=== PATIENT | male | born 1945 | race Two or more races ===

== ENCOUNTER 2024-09-02 13:04 | Inpatient (IN) | payer MEDICARE, MEDICAID, SELFPAY ==
[2024-09-02] VITALS (7 sets, daily range): BP systolic 99–114; BP diastolic 56–61; PULSE 68–97; RESP 14–18; TEMP 36.4–36.8; O2SAT 89–96; BMI 28.5
--- NOTE | 2024-09-02 13:19 | PD.EDADULT ---
ED General RME/HPI General Chief complaint: General Adult/Misc Complain Stated complaint: ABNORMAL LABS Time Seen by Provider: 09/02/24 13:18 Arrival date/time: 09/02/24 13:04 CC: Elevated white blood cell count recent urinary tract infection recently took ciprofloxacin HPI patient presents the ER via EMS from assisted care facility where he was sent for elevated white blood cell count patient has an indwelling Blum catheter and has had a history of recurrent infections. Patient is awake alert but not she is using foul language EMS report blood pressures of 100/60 with no tachycardia. Per report from assisted care facility the patient is not febrile. Related Data Home Medications ?Medication ?Instructions ?Recorded ?Confirmed ascorbic acid (vitamin C) 500 mg 500 mg PO BID 05/02/24 09/03/24 tablet baclofen 10 mg tablet 10 mg PO BID neuropathy 05/02/24 09/03/24 benazepril 40 mg tablet 40 mg PO QDAY 05/02/24 09/03/24 diclofenac sodium 75 mg 75 mg PO BID Arthiritis type pain 05/02/24 09/03/24 tablet,delayed release docusate sodium 100 mg capsule 100 mg PO QDAY constipation 05/02/24 09/03/24 (Stool Softener) dulaglutide 0.75 mg/0.5 mL 0.75 mg subcut QWEEK diabetes 05/02/24 09/03/24 subcutaneous pen injector (Trulicity) furosemide 20 mg tablet 20 mg PO QAM congestion 05/02/24 09/03/24 gabapentin 800 mg tablet 800 mg PO TID neuropathy 05/02/24 09/03/24 melatonin 5 mg tablet 5 mg PO HS inability to sleep 05/02/24 09/03/24 pantoprazole 40 mg tablet,delayed 40 mg PO QDAY indigestion 05/02/24 09/03/24 release tamsulosin 0.4 mg capsule (Flomax) 0.4 mg PO QDAY BPH 05/02/24 09/03/24 tramadol 50 mg tablet 50 mg PO Q12HR PRN moderate to 05/02/24 09/03/24 severe pain 4-10 acetaminophen 325 mg tablet 650 mg PO [id number] PRN mild pain 06/08/24 09/03/24 (Tylenol) insulin aspart U-100 100 unit/mL See Rx Instructions .Route .COMPLEX 06/08/24 09/03/24 subcutaneous solution multivitamin with minerals 1 cap PO QDAY 06/08/24 09/03/24 hydroxyzine HCl 25 mg tablet 25 mg Q12HR PRN Anxiety 07/28/24 09/03/24 ondansetron HCl 4 mg tablet 4 mg PO Q6H PRN Nausea 07/28/24 09/03/24 amino acids-protein hydrolysate 15 1 ea PO BID wound healing 09/03/24 09/03/24 gram-100 kcal/30 mL oral liquid (Pro-Stat Sugar Free) bisacodyl 10 mg rectal suppository 10 mg [place] QDAY PRN Constipation 09/03/24 09/03/24 (Dulcolax (bisacodyl)) citalopram 20 mg tablet 20 mg PO 1XD verbal aggression 09/03/24 09/03/24 towards others cranberry extract 425 mg capsule 425 mg PO BID 09/03/24 09/03/24 finasteride 5 mg tablet 5 mg PO QDAY DHT 09/03/24 09/03/24 glucagon 1 mg/0.2 mL subcutaneous 1 mg PRN PRN blood sugar <70 09/03/24 09/03/24 auto-injector magnesium hydroxide 400 mg/5 mL 30 ml PO Q72H PRN Constipation 09/03/24 09/03/24 oral suspension (Milk of Magnesia) metronidazole 500 mg tablet 500 mg PO 1XD 09/03/24 09/03/24 sodium phosphates 19 gram-7 118 ml [place] Q72H PRN Constipation 09/03/24 09/03/24 gram/118 mL enema (Fleet Enema) Previous Rx's ?Medication ?Instructions ?Recorded insulin glargine 100 unit/mL (3 15 unit (0.15 mL) subcut QPM #15 mL 08/01/24 mL) subcutaneous pen (Lantus Solostar U-100 Insulin) Allergies Allergy/AdvReac Type Severity Reaction Status Date / Time No Known Allergies Allergy Verified 07/25/24 10:51 Review of Systems Review of Systems Narrative Review of Systems: GEN: No fever, no chills, no weight loss EYES: No discharge, no visual changes, no pain HEENT: No ear pain, no congestion, no sore throat PULM: No shortness of breath, no cough, no congestion CV: No chest pain, no dyspnea on exertion, no palpitations GI: No nausea, no vomiting, no diarrhea, no pain, no constipation : No frequency, no urgency, no dysuria MUSC/SKEL: No joint pain, no back pain SKIN:+ Heel ulcer, no rash PSYCH: No hallucinations, no depression HEME/LYMPH: No easy bleeding or bruising tendencies NEURO: No weakness, no headache Past Medical History Past Medical History NEUROLOGIC: Positive Neurological Disorders and Peripheral Neuropathy; Negative Seizures CARDIAC: Positive Coronary Artery Disease, Hypercholesterolemia and Hypertension; Negative Cardiac Disorders or Congestive Heart Failure RESPIRATORY: Positive Asthma; Negative Chronic Obstructive Pulmonary Disease (COPD) GASTROINTESTINAL: Positive Gastroesophageal Reflux Disease and Obesity GENITOURINARY: Positive Genitourinary Disorders and Benign Prostatic Hyperplasia; Negative Renal Disease MUSCULOSKELETAL: Positive Musculoskeletal Disorders (t11 t12 fx) ENT: Positive Ear Infection ENDOCRINE: Positive Diabetes Mellitus Type 2; Negative Diabetes Mellitus Type 1 HEMATOLOGIC: Positive Anemia; Negative Sickle Cell Disease PSYCHO/SOCIAL: Positive Anxiety OTHER HISTORY: Positive Falls; Negative Blood Transfusions, Blood Transfusion Reaction or Anesthesia Reactions Surgical History SURGICAL: Positive Cardiac Surgery, Coronary Stent and Ear Surgery Social History SMOKING STATUS: Light (< 1 pack/day) SUBSTANCE USE: marijuana ED Exam Narrative Physical exam: [General: Appears not in any acute distress Head normocephalic HEENT: Within acceptable limits Neck is supple nontender Chest equal chest rise nontender to palpation Respiratory: Clear to auscultation no wheezes crackles or rubs CV: Rate rhythm is regular no murmurs rubs or clicks Abdomen is distended secondary to body habitus soft nontender no masses positive bowel sounds all 4 quadrants , Blum catheter admitting from the tip of the penis cloudy urine yellow in color draining into a bag minimal out in the bag. Back: No CVA tenderness no spinous process tenderness from cervical spine thoracic and lumbar spine Skin: Intact no petechiae rash induration ulceration or crepitus Extremities: Moving all extremity against resistance cap refill less than 2 seconds neurosensory intact Neuro: Awake alert oriented x2, person and place, Glascow coma 15 no focal deficits] Course Course Course Narrative: Patient's case discussed with Dr. Peraza for Dr. Galdamez, who requesting a chest x-ray and a foot x-ray. Quality Measures none Orders Category Date Time Status Saline [Insert IV] NOW Care 09/02/24 14:32 Active Consult to General Surgery Stat Cons 09/02/24 15:33 Ordered XR chest 1V Stat Exams 09/02/24 14:56 Completed XR foot comp RT min 3V Stat Exams 09/02/24 14:58 Completed CBC Stat Lab 09/02/24 13:45 Completed CMP [Comprehensive Metabolic Panel] Stat Lab 09/02/24 13:45 Completed Urinalysis Stat Lab 09/02/24 18:57 Completed Urine Culture Stat Lab 09/02/24 13:18 Received Sodium Chloride 0.9% 1000 ml [Ns] 1,000 ml Med 09/02/24 14:32 Discontinued IV 999 mls/hr Vital Signs Vital signs: Vital Signs Temperature 97.5 F 09/02/24 13:09 Pulse Rate 72 09/02/24 13:09 Respiratory Rate 16 09/02/24 13:09 Blood Pressure 114/61 09/02/24 13:09 Pulse Oximetry (%) 96 09/02/24 13:09 Oxygen Delivery Method Room Air 09/02/24 13:09 [facility] Patient data External records reviewed:: [facility] previous records and EMS form Clinical information provided by:: patient and EMS Social determinants that could affect healthcare access:: none Patient has the following chronic illnesses:: Foot ulcer recurrent UTIs How is presenting disease/condition affected by chronic disease/condition?: uneffected by Evaluation data The following diagnostics were reviewed and interpreted by me:: lab results, radiology exam(s) and EKG tracing(s) Lab and/or radiology exams considered but not ordered:: CBC results showed leukocytosis stable anemia no thrombocytopenia CMP shows acute renal insufficiency worse than on prior visits or admissions. No significant electrolyte imbalances no transaminitis or T. bili elevation Chest x-ray as interpreted by radiologist as there is a left base pneumonia X-ray of the right foot shows no osteomyelitic changes to the calcaneus. Interpretation Summary: Patient is leukocytosis GOMEZ with possible pneumonia, patient's case discussed with Dr. Zamudio, resident for Dr. Galdamez agrees to accept the patient for admission. Medications Medications considered but not ordered:: None Medication administrations:: Medication Administration History Acetaminophen (Acetaminophen 325 Mg Tablet) 650 mg PO Q6H PRN PRN Reason: Fever >101.5 and mild pain 1-3 Stop: 10/02/24 16:55 Dextrose (Dextrose 50%-Water Inj 50 Ml Syringe) 25 ml IV Q15MIN PRN PRN Reason: BG 50-70 responsive npo pt Stop: 10/02/24 17:30 Dextrose (Dextrose 50%-Water Inj 50 Ml Syringe) 50 ml IV Q15MIN PRN PRN Reason: BG <50 OR BG <70 & pt unresponsive Stop: 10/02/24 17:30 Glucagon (Glucagon Inj 1 Mg Vial) 1 mg IM Q15MIN PRN PRN Reason: BG <70, and no IV access Sodium Chloride (Ns) 1,000 mls @ 75 mls/hr IV .[id number] [facility] Stop: 10/02/24 16:52 Last Admin: 09/02/24 17:24 Dose: 75 mls/hr Documented By: Doxycycline Hyclate 100 mg/ (Sodium Chloride) 100 mls @ 100 mls/hr IV BID [facility] Stop: 09/09/24 20:59 Last Admin: 09/02/24 21:07 Dose: 100 mls/hr Documented By: GERALD Cefepime HCl 1 gm/ Sodium (Chloride) 50 mls @ 100 mls/hr IV Q12HR [facility] Stop: 09/09/24 16:54 Last Admin: 09/02/24 20:57 Dose: Not Given Documented By: GERALD Non-Admin Reason: MEDS ZAK Q12HRS Infusion: 09/02/24 18:32 Dose: Infused Documented By: Admin: 09/02/24 17:23 Dose: 100 mls/hr Documented By: Insulin Human Regular (Insulin Hum Regular 1 Unit/0.01 Ml (Per Unit)) 0 unit SC [facility]; Protocol Stop: 10/02/24 20:59 Last Admin: 09/02/24 21:13 Dose: Not Given Documented By: GERALD Non-Admin Reason: Per Protocol Lorazepam (Lorazepam 2 Mg/Ml Vial) 1 mg IVP X1 PRN PRN Reason: AGITATION Stop: 09/08/24 03:07 Last Admin: 09/03/24 03:30 Dose: 1 mg Documented By: AVE Ondansetron HCl (Ondansetron Inj 2 Mg/Ml Inj 2 Ml) 4 mg IV Q6H PRN; Protocol PRN Reason: NAUSEA OR VOMITING Stop: 10/02/24 16:55 Oxycodone/Acetaminophen (Oxycodone/Apap 5/325 Tablet) 1 tab PO Q6H PRN PRN Reason: PAIN SCALE 4-6 (Moderate Stop: 09/07/24 16:55 Pantoprazole Sodium (Pantoprazole Inj 40 Mg Vial) 40 mg IVP QDAY ZAK Stop: 10/02/24 16:59 Last Admin: 09/02/24 17:23 Dose: 40 mg Documented By: MS Discontinued Medications Sodium Chloride (Ns) 1,000 mls @ 999 mls/hr IV .Q1H1M ONE Stop: 09/02/24 15:32 Last Infusion: 09/02/24 17:39 Dose: Infused Documented By: Admin: 09/02/24 15:06 Dose: 999 mls/hr Documented By: MS None Consultations Consultation(s) initiated? (list below): No Diagnosis Differential Diagnosis ED Complaint MDM: GOMEZ UTI electrolyte imbalance Most likely diagnosis given after review of the tests above:: GOMEZ Admission Indicated Admission indicated?: indicated Explain why admission is indicated or not indicated:: Further medical management Admission Request Was there a request for admission?: No Disposition Plan Disposition Plan: Admit Medical Decision Making Differential Diagnosis Differential Diagnosis: GOMEZ UTI electrolyte imbalance Lab Data 09/03/24 04:41 09/02/24 13:45 Labs: Lab Results 09/02/24 Range/Units 13:45 WBC 17.2 H (3.8-10.6) Thou/mm3 RBC 3.85 L (4.50-5.90) Miln/mm3 Hgb 10.1 L (13.5-16.0) g/dL Hct 31.5 L (41.0-53.0) % MCV 82 (80-100) fL MCH 26.2 (25.0-35.0) pg MCHC 32.1 (31.0-37.0) g/dl RDW Std Deviation 53.9 H (35.1-43.9) fL Plt Count 329 D (140-440) Thou/mm3 Neut % (Auto) 87 H (37-80) % Lymph % (Auto) 6 L (10-50) % [place] % (Auto) 4 (0-12) % Eos % (Auto) 1 (0-10) % Baso % (Auto) 0 (0-2.5) % Neut # (Auto) 14.9 H (1.8-7.7) Thou/mm3 Lymph # (Auto) 1.1 (1.0-4.8) Thou/mm3 [place] # (Auto) 0.6 (0.0-0.8) Thou/mm3 Eos # (Auto) 0.1 (0.0-0.5) Thou/mm3 Baso # (Auto) 0.1 (0.0-0.2) Thou/mm3 Immature Gran # (Auto) 0.36 H (0.00-0.00) Thou/mm3 Absolute Nucleated RBC 0.00 (0.00-0.00) Thou/mm3 Immature Gran % 2 H (0-0) % Nucleated RBC % 0 (0) /100 WBC Sodium 131 L (136-145) mMol/L Potassium 4.2 (3.4-5.1) mMol/L Chloride 102 (98-107) mMol/L Carbon Dioxide 21.6 (20.0-31.0) mMol/L Anion Gap 7 (7-16) BUN 60 H (9-23) mg/dL Creatinine 2.5 H (0.6-1.3) mg/dL Estim Creat Clear Calc 28.4 L (>60) mL/min eGFR 26 L (60 - ) See Note BUN/Creatinine Ratio 24 H (12-20) Ratio Glucose 157 H (74-106) mg/dL Calculated Osmolality 282 (275-295) Calcium 8.9 (8.3-10.6) mg/dL Corrected Calcium 9.5 (8.5-10.1) mg/dL Total Bilirubin 0.4 (0.3-1.2) mg/dL AST 10 (0-34) U/L ALT 8 L (10-49) U/L Alkaline Phosphatase 105 (46-116) U/L Total Protein 6.5 (5.7-8.2) gm/dL Albumin 3.3 L (3.4-4.8) gm/dL Globulin 3.2 (2.3-3.5) gm/dL Albumin/Globulin Ratio 1.0 L (1.2-2.2) Discharge Plan Plan Patient Disposition: Admit Acute Care w/in Hospital Patient condition on transfer: Stable Problem List Clinical Impression: GOMEZ (acute kidney injury), Leukocytosis, Chronic heel ulcer, Pneumonia MD Attestation MD Attestation The patient was seen by the midlevel practitioner. I, the co-signing physician, was present during the entire ER visit. While I did not physically examine the patient, I was available for consultation as needed.
[2024-09-02 14:01] LABS: Basophils # (Auto) 0.1 Thou/mm3 (0.0-0.2); Basophils % (Auto) 0 % (0-2.5); Eosinophils # (Auto) 0.1 Thou/mm3 (0.0-0.5); Eosinophils % (Auto) 1 % (0-10); Hematocrit 31.5 % (41.0-53.0); Hemoglobin 10.1 g/dL (13.5-16.0); Immature Granulocytes % (Auto) 2 % (0-0); Immature Granulocytes Auto 0.36 Thou/mm3 (0.00-0.00); Lymphocytes # (Auto) 1.1 Thou/mm3 (1.0-4.8); Lymphocytes % (Auto) 6 % (10-50); Mean Corpuscular HGB Conc 32.1 g/dl (31.0-37.0); Mean Corpuscular Hemoglobin 26.2 pg (25.0-35.0); Mean Corpuscular Volume 82 fL (80-100); Monocytes # (Auto) 0.6 Thou/mm3 (0.0-0.8); Monocytes % (Auto) 4 % (0-12); Neutrophils # (Auto) 14.9 Thou/mm3 (1.8-7.7); Neutrophils % (Auto) 87 % (37-80); Nucleated Red Blood Cell % 0 /100 WBC (0); Platelet Count 329 Thou/mm3 (140-440); RDW Standard Deviation 53.9 fL (35.1-43.9); Red Blood Count 3.85 Miln/mm3 (4.50-5.90); White Blood Count 17.2 Thou/mm3 (3.8-10.6)
[2024-09-02 14:23] LABS: Alanine Aminotransferase 8 U/L (10-49); Albumin, Serum 3.3 gm/dL (3.4-4.8); Alkaline Phosphatase 105 U/L (46-116); Anion Gap 7 (7-16); Aspartate Amino Transferase 10 U/L (0-34); BUN/Creatinine Ratio 24 Ratio (12-20); Bilirubin,Total 0.4 mg/dL (0.3-1.2); Blood Urea Nitrogen 60 mg/dL (9-23); Calcium 8.9 mg/dL (8.3-10.6); Calcium (Corrected) 9.5 mg/dL (8.5-10.1); Carbon Dioxide 21.6 mMol/L (20.0-31.0); Chloride 102 mMol/L (98-107); Creatinine (Component) 2.5 mg/dL (0.6-1.3); Estimated Creatinine Clearance 28.4 mL/min (>60); Globulin 3.2 gm/dL (2.3-3.5); Glucose 157 mg/dL (74-106); Osmolality,Calculated 282 (275-295); Potassium 4.2 mMol/L (3.4-5.1); Sodium 131 mMol/L (136-145); Total Protein 6.5 gm/dL (5.7-8.2); eGFR 26 See Note
--- NOTE | 2024-09-02 14:56 | XR_ITS ---
Examination: AP chest single view Technique one AP portable upright chest single view Exam date and time: September 02, 2024 1503 hours Comparison July 27, 2024 INDICATIONS: Diminished left-sided breath sounds today FINDINGS: Significant left perihilar left basilar pneumonia Mild prominence left ventricle Moderate osteopenia IMPRESSION: Significant left lung pneumonia
--- NOTE | 2024-09-02 14:58 | XR_ITS ---
Examination: Foot, right, 3 views Technique: AP, oblique, lateral views foot, 3 views Date and time of exam: September 02, 2024 1503 hours INDICATIONS: Open nonhealing ulcer on medial. FINDINGS: Severe osteopenia Chronic deformity at the first metatarsophalangeal joint Soft tissue vascular calcification Soft tissue defect medial been no hans cortical bone destruction IMPRESSION: No hans cortical bone destruction MRI ankle without contrast follow-up would best assess for osteomyelitis calcaneus
[2024-09-02] MEDS: SODIUM CHLORIDE 0.9% 1000 ML 1,000 ML 999 ML IV (15:06)
--- NOTE | 2024-09-02 17:00 | PD.RESHP ---
Documentation for date of: 09/02/24 HPI History of Present Illness History of present illness: Mr. Navarro is a 79-year-old male with past medical history significant for hypertension, hyperlipidemia, type 2 diabetes, BPH, peripheral neuropathy, GERD, anxiety, history of cocci positive on May 03, 2024 presented to the ED via EMS from SNF complaining of worsening wound on right foot and increased WBC count at the nursing facility. Patient's son Don is at bedside, and majority of history was obtained from him. He states patient is a little more confused than usual. Son believes that his father has deteriorated in health since his last hospitalization. Patient had a wound on his right foot for several months for which he was seeking wound care at the [place] [facility] but it has progressively gotten worse. Patient also gets UTIs often. patient's son is tearful and states that that his dad did not want to go through invasive procedures or interventions and that he strictly wanted to be DNR and DNI. Patient would like to revisit goals of care discussion with his brother on the call. Patient has been complaining of pain in the right foot. ED course: In the ED patient's blood pressure was 114/61 saturating on room air, WBC 17.2 hemoglobin 10.1 hematocrit 31.5 sodium 131, creatinine 2.5, and GFR 26, blood glucose 157, albumin 3.3 Images: Chest x-ray findings include significant for left lung pneumonia Foot x-ray-no hans cortical bone destruction, Severe osteopenia Chronic deformity at the first metatarsophalangeal joint Soft tissue vascular calcification Soft tissue defect medial been no hans cortical bone destruction In the ED patient received 1 L bolus fluids, general surgery Dr. Morrell consulted, wound care ordered PMH: Hypertension, hyperlipidemia, insulin-dependent diabetes, CAD status post stenting, prefer artery disease, peripheral neuropathy, GERD, anxiety, asthma, chronic Dietrich, CKD, history of UTI Medications: Waiting med rec's Review of Systems Review of Systems Systems Reviewed: All systems reviewed, normal except as documented Exam Vital Signs Temp Pulse Resp BP Pulse Ox O2 Del Method 98.3 F 86 18 99/58 L 91 L Nasal Cannula 09/02/24 16:08 09/02/24 16:08 09/02/24 16:08 09/02/24 16:08 09/02/24 16:08 09/02/24 16:08 Narrative Exam GENERAL: A&Ox1 . Awake, Not in acute distress NEURO: no focal neurological deficits HEENT: Atraumatic, Normocephalic. mucous membranes moist. Eyes open, symmetrical, & clear HEART: Normal Heart Sounds LUNGS: ABDOMEN: soft, non-distended, non-tender, no guarding or rebound tenderness SKIN: ecchymoisis bilaterally on upper and lower extremities EXTREMITIES: No edema, tenderness at the right foot, right LE ulcer at the heel Results: Labs 09/03/24 04:41 09/03/24 04:41 Labs: Short CBC 09/02/24 Range/Units 13:45 WBC 17.2 H (3.8-10.6) Thou/mm3 Hgb 10.1 L (13.5-16.0) g/dL Hct 31.5 L (41.0-53.0) % Plt Count 329 D (140-440) Thou/mm3 BMP 09/02/24 13:45 Sodium 131 L Potassium 4.2 Chloride 102 Carbon Dioxide 21.6 BUN 60 H Creatinine 2.5 H Glucose 157 H Calcium 8.9 Liver Function 09/02/24 Range/Units 13:45 Total Bilirubin 0.4 (0.3-1.2) mg/dL AST 10 (0-34) U/L ALT 8 L (10-49) U/L Alkaline Phosphatase 105 (46-116) U/L Albumin 3.3 L (3.4-4.8) gm/dL Quality Measures Quality Measures VTE therapy Advance care planning discussed with:: child Medications Home Medications and Allergies Home Medications ?Medication ?Instructions ?Recorded ?Confirmed ?Type ascorbic acid (vitamin C) 500 mg 500 mg PO BID 05/02/24 09/03/24 History tablet baclofen 10 mg tablet 10 mg PO BID neuropathy 05/02/24 09/03/24 History benazepril 40 mg tablet 40 mg PO QDAY 05/02/24 09/03/24 History diclofenac sodium 75 mg 75 mg PO BID Arthiritis type pain 05/02/24 09/03/24 History tablet,delayed release docusate sodium 100 mg capsule 100 mg PO QDAY constipation 05/02/24 09/03/24 History (Stool Softener) dulaglutide 0.75 mg/0.5 mL 0.75 mg subcut QWEEK diabetes 05/02/24 09/03/24 History subcutaneous pen injector (Trulicity) furosemide 20 mg tablet 20 mg PO QAM congestion 05/02/24 09/03/24 History gabapentin 800 mg tablet 800 mg PO TID neuropathy 05/02/24 09/03/24 History melatonin 5 mg tablet 5 mg PO HS inability to sleep 05/02/24 09/03/24 History pantoprazole 40 mg tablet,delayed 40 mg PO QDAY indigestion 05/02/24 09/03/24 History release tamsulosin 0.4 mg capsule (Flomax) 0.4 mg PO QDAY BPH 05/02/24 09/03/24 History tramadol 50 mg tablet 50 mg PO Q12HR PRN moderate to 05/02/24 09/03/24 History severe pain 4-10 acetaminophen 325 mg tablet 650 mg PO [id number] PRN mild pain 06/08/24 09/03/24 History (Tylenol) insulin aspart U-100 100 unit/mL See Rx Instructions .Route .COMPLEX 06/08/24 09/03/24 History subcutaneous solution multivitamin with minerals 1 cap PO QDAY 06/08/24 09/03/24 History hydroxyzine HCl 25 mg tablet 25 mg Q12HR PRN Anxiety 07/28/24 09/03/24 History ondansetron HCl 4 mg tablet 4 mg PO Q6H PRN Nausea 07/28/24 09/03/24 History amino acids-protein hydrolysate 15 1 ea PO BID wound healing 09/03/24 09/03/24 History gram-100 kcal/30 mL oral liquid (Pro-Stat Sugar Free) bisacodyl 10 mg rectal suppository 10 mg MA QDAY PRN Constipation 09/03/24 09/03/24 History (Dulcolax (bisacodyl)) citalopram 20 mg tablet 20 mg PO 1XD verbal aggression 09/03/24 09/03/24 History towards others cranberry extract 425 mg capsule 425 mg PO BID 09/03/24 09/03/24 History finasteride 5 mg tablet 5 mg PO QDAY DHT 09/03/24 09/03/24 History glucagon 1 mg/0.2 mL subcutaneous 1 mg PRN PRN blood sugar <70 09/03/24 09/03/24 History auto-injector magnesium hydroxide 400 mg/5 mL 30 ml PO Q72H PRN Constipation 09/03/24 09/03/24 History oral suspension (Milk of Magnesia) metronidazole 500 mg tablet 500 mg PO 1XD 09/03/24 09/03/24 History sodium phosphates 19 gram-7 118 ml MA Q72H PRN Constipation 09/03/24 09/03/24 History gram/118 mL enema (Fleet Enema) Allergies Allergy/AdvReac Type Severity Reaction Status Date / Time No Known Allergies Allergy Verified 07/25/24 10:51 Visit Medications Sodium Chloride (Ns) 1,000 mls @ 75 mls/hr IV .[id number] ZAK Stop: 10/02/24 16:52 Doxycycline Hyclate 100 mg/ (Sodium Chloride) 100 mls @ 100 mls/hr IV BID AZK Stop: 09/09/24 20:59 Cefepime HCl 1 gm/ Sodium (Chloride) 50 mls @ 100 mls/hr IV Q12HR ZAK Stop: 09/09/24 16:54 Discontinued Medications Sodium Chloride (Ns) 1,000 mls @ 999 mls/hr IV .Q1H1M ONE Stop: 09/02/24 15:32 Last Admin: 09/02/24 15:06 Dose: 999 mls/hr Assessment & Plan Plan Mr. Navarro is a 79-year-old male with past medical history significant for hypertension, hyperlipidemia, type 2 diabetes, BPH, peripheral neuropathy, GERD, anxiety, history of cocci positive on May 03, 2024 presented to the ED via EMS from SNF complaining of worsening wound on right foot and increased WBC count at the nursing facility. #Acute renal failure #History of CKD # Urinary tract infection #chronic Dietrich -Patient has a history of recurrent UTIs due to chronic Dietrich -BUN 60 Cr 2.5 GFR 26, BUN/Cr 24 Plan -1 L bolus normal saline given in the ED -IV fluids maintenance ordered -Dual coverage of antibiotics started -Nephrology consulted, -Urinalysis pending -Urine cultures pending -Requested nurse to change Dietrich cath now # Leukocytosis secondary to #CAP Pneumonia #Acute Metabolic Encepholopathy - -Patient denies any cough, fever shortness of breath, -Chest x-ray findings include significant left lung pneumonia -In the ED patient received 1 L bolus IV fluids Plan: -IV fluids maintenance ordered -Doxycycline 100mg IV -Cefepime 1g IV # Pressure ulcer # Nonhealing wound on R. foot # Diabetic foot ulcer-likely -Patient has a nonhealing pressure ulcer on the right lower extremity on the heel of right foot - Foot x-ray-no hans cortical bone destruction, Severe osteopenia Chronic deformity at the first metatarsophalangeal joint Soft tissue vascular calcification Soft tissue defect medial been no hans cortical bone destruction Plan: -ED consulted Dr. Maurer for recommendations -Wound care ordered -Blood culture urine cultures ordered #CAD s/p stents (02/2024) -On previous admission patient was started on Aspirin and Plavix. Not listed on SNF medication list. Plan -Medication Reconciliation pending #Hypertension -On admission, blood pressure was 114/61 Plan -Hold blood pressure meds -medication reconciliation #Diabetes Mellitus Type II, Insulin Dependent -On admission glucose of 157 and previous A1c 8.3 (06/08/2024). Plan: -Sliding Scale ordered -Medication Reconciliation #GERD -Pantoprazole 40 daily Disposition: Medsurg or telemetry DVT Prophylaxis: SCD QSHIFT GI Prophylaxis: Pantoprozol-40 IV Diet: Dysphagia 1 Code status: DNR/DNI Assessment and plan discussed with my senior resident Dr. Parra & attending physician Dr. Rudolph Horn (PGY-1)- Internal medicine resident I discussed with and supervised the investigator internal affairs physician who took care of this patient. I personally saw and examined the patient and discussed the assessment and plan with the entire medicine team, including my attending Dr. Rudolph SALAS. I agree with the assessment and plan as documented above. Mr. Neel Navarro is a 79-year-old gentleman with past medical history significant for hypertension, hyperlipidemia, type 2 diabetes mellitus, BPH, peripheral neuropathy, GERD, anxiety with recent hospitalization requiring intubation 1 month prior to today's presentation. Patient was sent from SNF to [facility] ED on 09/02/2024 due to a lab finding of leukocytosis. On initial workup in the ED, patient was noted to have a GOMEZ of 2.4 elevated from the patient's baseline which appears to be 1.0. Urinalysis revealed a markedly elevated WBC of 1961. Also notable for 4+ bacteria with patient having a chronic indwelling catheter. On our initial evaluation, the patient noted to have decreased bilateral breath sounds. A stat chest x-ray was ordered which showed a left lung base pneumonia. On physical exam, the patient was noted to have a right lower extremity heel pressure ulcer draining serosanguineous fluid. Discussion was held with patient's son in regards to goals of care of the patient. Patient's son initially was considering hospice. However deferred hospice at this time and wanted to discuss further with his brother. Plan: Patient will receive bolus 1 L with maintenance fluids for GOMEZ. Will also consult nephrology services for further recommendations and guidance. Will treat pneumonia with broad-spectrum antibiotic regimen of doxycycline and cefepime renally dosed, which will also have coverage for UTI. For right lower extremity pressure ulcer of the heel, will consult general surgery service for possible debridement. Will also get wound care. Will restart home medications upon medication reconciliation. Grey Parra M.D. Internal Medicine PGY-3 Attending Provider Attestation/Addendum I, Fannie Galdamez DO, attest that I was physically present for the [place] portions of the service and evaluated the patient with the resident and I reviewed and discussed the case with the resident and agree with the resident's findings and plans of care as documented above Patient is a 79 year old male with Pmhx of 79-year-old male with past medical history significant for hypertension, hyperlipidemia, type 2 diabetes, BPH with chronic dietrich, peripheral neuropathy, GERD, anxiety, history of cocci who was brought to ED due to worsening leukocytosis. Patient was recently admitted for respiratory failure requiring intubation. Patient now found to have acute renal failure upon arrival to ED and left lower pneumonia. Patient is on 5L/NC at time of evaluation. Son at bedside. Patient denied any pain, but was not cooperative with exam. Patient did not wish for me to speak to his son at bedside. However, patient also with very poor hearing. He is noted to have a wound on the lateral aspect of his right foot and blister over his right heel that had been previously debrided by a hand stapler. Son states that patient's dietrich has not been switched out and has been having many recurrent UTIs. Son was also tearful. Will consult nephrology regarding ARF and surgeon for right foot pressure ulcers that appear infected. Will admit to telemetry. However, after my evaluation, investigator internal affairs spoke with patient and son who made a statement that patient would not wish to undergo any further aggressive measures and considering hospice care. However, he will need to speak to his siblings before coming to a final decision. Will continue with current plan of care and hold family meeting in AM.
[2024-09-02] MEDS: PANTOPRAZOLE INJ 40 MG VIAL IVP (17:23)
[2024-09-02] MEDS: CEFEPIME INJ 1 GM in SODIUM CHLORIDE 0.9% (P) 50 ML IV (17:23)
[2024-09-02] MEDS: SODIUM CHLORIDE 0.9% 1000 ML 1,000 ML 75 ML IV (17:24)
[2024-09-02 19:07] LABS: Collection Type, Urine Catheter; Squamous Epithelial Cell,Urine 0 /hpf (0-5)
[2024-09-02 19:14] LABS: Bacteria,Urine 4+; Bilirubin,Urine Negative (Negative); Blood,Urine 2+ (Negative); Budding Yeast,Urine Present; Glucose, Urine Trace (Negative); Ketones,Urine Negative (Negative); Leukocyte Esterase,Urine Positive (Negative); Nitrite,Urine Negative (Negative); Protein,Urine 1+ (Neg - Trace); RBC,Urine 6 /hpf (0-3); Urobilinogen,Urine Negative mg/dL (0.0-1.0); WBC,Urine 1961 /hpf (0-5)
[2024-09-02 19:16] LABS: Clarity,Urine Turbid (Clear/Hazy); Color,Urine Yellow (Lt Yel-Yel)
[2024-09-02] MEDS: DOXYCYCLINE INJ 100 MG in SODIUM CHLORIDE 0.9% (P) 100 ML IV (21:07)
[2024-09-03] VITALS (7 sets, daily range): BP systolic 98–143; BP diastolic 51–77; PULSE 80–103; RESP 17–19; TEMP 36.3–37; O2SAT 95–100; BMI 24.2; BMI 24.3
[2024-09-03] MEDS: LORazepam 2 MG/ML VIAL 1 MG IVP ×2 (03:30→21:44)
[2024-09-03 05:51] LABS: Basophils # (Auto) 0.1 Thou/mm3 (0.0-0.2); Basophils % (Auto) 0 % (0-2.5); Eosinophils # (Auto) 0.1 Thou/mm3 (0.0-0.5); Eosinophils % (Auto) 0 % (0-10); Hematocrit 27.7 % (41.0-53.0); Immature Granulocytes % (Auto) 2 % (0-0); Immature Granulocytes Auto 0.41 Thou/mm3 (0.00-0.00); Lymphocytes # (Auto) 0.7 Thou/mm3 (1.0-4.8); Lymphocytes % (Auto) 3 % (10-50); Mean Corpuscular HGB Conc 32.1 g/dl (31.0-37.0); Mean Corpuscular Hemoglobin 26.6 pg (25.0-35.0); Mean Corpuscular Volume 83 fL (80-100); Monocytes # (Auto) 1.4 Thou/mm3 (0.0-0.8); Monocytes % (Auto) 5 % (0-12); Neutrophils # (Auto) 25.5 Thou/mm3 (1.8-7.7); Neutrophils % (Auto) 90 % (37-80); Nucleated Red Blood Cell % 0 /100 WBC (0); Platelet Count 275 Thou/mm3 (140-440); RDW Standard Deviation 54.9 fL (35.1-43.9); Red Blood Count 3.35 Miln/mm3 (4.50-5.90)
[2024-09-03 05:54] LABS: Hemoglobin 8.9 g/dL (13.5-16.0); White Blood Count 28.2 Thou/mm3 (3.8-10.6)
[2024-09-03 06:49] LABS: Alanine Aminotransferase < 7 U/L (10-49); Albumin, Serum 2.7 gm/dL (3.4-4.8); Alkaline Phosphatase 85 U/L (46-116); Anion Gap 10 (7-16); Aspartate Amino Transferase 11 U/L (0-34); BUN/Creatinine Ratio 22 Ratio (12-20); Bilirubin,Total 0.4 mg/dL (0.3-1.2); Blood Urea Nitrogen 49 mg/dL (9-23); Calcium 7.9 mg/dL (8.3-10.6); Calcium (Corrected) 8.9 mg/dL (8.5-10.1); Carbon Dioxide 16.8 mMol/L (20.0-31.0); Chloride 106 mMol/L (98-107); Creatinine (Component) 2.2 mg/dL (0.6-1.3); Estimated Creatinine Clearance 29.5 mL/min (>60); Globulin 2.8 gm/dL (2.3-3.5); Glucose 130 mg/dL (74-106); Osmolality,Calculated 281 (275-295); Potassium 4.4 mMol/L (3.4-5.1); Sodium 133 mMol/L (136-145); Total Protein 5.5 gm/dL (5.7-8.2); eGFR 30 See Note
--- NOTE | 2024-09-03 08:11 | PD.SURCONS ---
HPI Consult details History of present illness: 79M with HTN, HLD, DMII who was brought from SNF due to worsening right heel wound. Pt's son reports that he had debridement several months ago and that the wound has not healed, leading pt to be unable to bear weight on the foot. Xray showed no hans cortical bone destruction Review of Systems Review of Systems ROS Unobtainable: All systems reviewed & no additional complaints except as documented Meds Home Medications and Allergies Home Medications ?Medication ?Instructions ?Recorded ?Confirmed ?Type ascorbic acid (vitamin C) 500 mg 500 mg PO BID 05/02/24 09/03/24 History tablet baclofen 10 mg tablet 10 mg PO BID neuropathy 05/02/24 09/03/24 History benazepril 40 mg tablet 40 mg PO QDAY 05/02/24 09/03/24 History diclofenac sodium 75 mg 75 mg PO BID Arthiritis type pain 05/02/24 09/03/24 History tablet,delayed release docusate sodium 100 mg capsule 100 mg PO QDAY constipation 05/02/24 09/03/24 History (Stool Softener) dulaglutide 0.75 mg/0.5 mL 0.75 mg subcut QWEEK diabetes 05/02/24 09/03/24 History subcutaneous pen injector (Trulicity) furosemide 20 mg tablet 20 mg PO QAM congestion 05/02/24 09/03/24 History gabapentin 800 mg tablet 800 mg PO TID neuropathy 05/02/24 09/03/24 History melatonin 5 mg tablet 5 mg PO HS inability to sleep 05/02/24 09/03/24 History pantoprazole 40 mg tablet,delayed 40 mg PO QDAY indigestion 05/02/24 09/03/24 History release tamsulosin 0.4 mg capsule (Flomax) 0.4 mg PO QDAY BPH 05/02/24 09/03/24 History tramadol 50 mg tablet 50 mg PO Q12HR PRN moderate to 05/02/24 09/03/24 History severe pain 4-10 acetaminophen 325 mg tablet 650 mg PO [id number] PRN mild pain 06/08/24 09/03/24 History (Tylenol) insulin aspart U-100 100 unit/mL See Rx Instructions .Route .COMPLEX 06/08/24 09/03/24 History subcutaneous solution multivitamin with minerals 1 cap PO QDAY 06/08/24 09/03/24 History hydroxyzine HCl 25 mg tablet 25 mg Q12HR PRN Anxiety 07/28/24 09/03/24 History ondansetron HCl 4 mg tablet 4 mg PO Q6H PRN Nausea 07/28/24 09/03/24 History amino acids-protein hydrolysate 15 1 ea PO BID wound healing 09/03/24 09/03/24 History gram-100 kcal/30 mL oral liquid (Pro-Stat Sugar Free) bisacodyl 10 mg rectal suppository 10 mg AK QDAY PRN Constipation 09/03/24 09/03/24 History (Dulcolax (bisacodyl)) citalopram 20 mg tablet 20 mg PO 1XD verbal aggression 09/03/24 09/03/24 History towards others cranberry extract 425 mg capsule 425 mg PO BID 09/03/24 09/03/24 History finasteride 5 mg tablet 5 mg PO QDAY DHT 09/03/24 09/03/24 History glucagon 1 mg/0.2 mL subcutaneous 1 mg PRN PRN blood sugar <70 09/03/24 09/03/24 History auto-injector magnesium hydroxide 400 mg/5 mL 30 ml PO Q72H PRN Constipation 09/03/24 09/03/24 History oral suspension (Milk of Magnesia) metronidazole 500 mg tablet 500 mg PO 1XD 09/03/24 09/03/24 History sodium phosphates 19 gram-7 118 ml AK Q72H PRN Constipation 09/03/24 09/03/24 History gram/118 mL enema (Fleet Enema) Allergies Allergy/AdvReac Type Severity Reaction Status Date / Time No Known Allergies Allergy Verified 07/25/24 10:51 Exam Vital Signs Temp Pulse Resp BP Pulse Ox O2 Del Method O2 Flow Rate 97.4 F 80 17 98/65 100 Nasal Cannula 3 09/03/24 04:00 09/03/24 04:00 09/03/24 04:00 09/03/24 04:00 09/03/24 04:00 09/03/24 04:00 09/03/24 04:00 Constitutional Constitutional: no acute distress Routine Respiratory Exam Respiratory: Present no resp distress Routine Extremities Exam Comments: right foot warm, heel with ecchymosis and swelling but no necrotic tissue, no fluctuance Results Results: Laboratory Laboratory results: results reviewed Results: Imaging Imaging narrative: Xray reviewed Assessment & Plan Plan 79M with HTN, HLD, DM, CAD, CKD presenting with chronic right heel wound with no signs of infection or necrosis Appreciate wound care recs No surgical intervention needed
[2024-09-03] MEDS: CEFEPIME INJ 1 GM in SODIUM CHLORIDE 0.9% (P) 50 ML IV ×2 (08:41→20:30)
[2024-09-03] MEDS: DOXYCYCLINE INJ 100 MG in SODIUM CHLORIDE 0.9% (P) 100 ML IV ×2 (08:41→21:30)
[2024-09-03] MEDS: PANTOPRAZOLE INJ 40 MG VIAL IVP (08:42)
[2024-09-03] MEDS: SODIUM CHLORIDE 0.9% 1000 ML 1,000 ML 75 ML IV ×2 (08:45→23:31)
--- NOTE | 2024-09-03 09:13 | PC.SS ---
Patient Neel Fenton is a 79 year old male admitted for Acute Renal Failure. SS spoke to patient?s son, Andres Ravi who he reports is patient's surrogate decision maker . Patient is a resident at [facility]. Patient utilizes a wheelchair to assist with mobility. Patient utilizes oxygen at the facility. Patient requires assistance with completion of ADL?s. Facility PCP is Dr. Deshpande. Plan is for the patient to return back to [facility] upon discharge. No further intervention required at this time, 7th grade social studies teacher will be available to address any further concerns. Next of Kin: Andres Ravi D/C Plan: [facility]
--- NOTE | 2024-09-03 09:55 | PC.SS ---
SS contacted patient's son, Andres to schedule a goals of care meeting for 1330. SS contacted Team A and made them aware.
[2024-09-03] MEDS: INSULIN HUM REGULAR 1 UNIT/0.01 ML (PER UNIT) SC ×3 (11:56→20:29)
--- NOTE | 2024-09-03 13:30 | PC.SS ---
Family meeting conducted. Cornelia's son, Andres Ravi, Rosetta dtr in law and granddaughter Bonnie present. Dr. Zaragoza, Dr. Horn and Dr. Benjamin present. Dr. Horn provided overview of patient's current condition, treatment plan and prognosis. Due to patient's kidney decline family has decided to transition the patient to hospice services. Plan is for the patient to d/c to SNF with hospice. Family requesting that patient transition to [facility] not [facility] where patient was residing prior to current admission. BANKER MASON informed family that request would be followed through but if [facility] does not possess a hospice bed patient will have to return to [facility]. No preferred hospice agency identified.
--- NOTE | 2024-09-03 14:25 | PC.SS ---
MEAT GRADING MACHINE OPERATOR attempted phone contact with [facility] to confirm possession of hospice bed. No response. MEAT GRADING MACHINE OPERATOR left message requesting return call.
--- NOTE | 2024-09-03 14:33 | ESCONSULT_ITS ---
RE: KENRICK GARZA : 1945 DATE OF CONSULTATION: 09/03/2024 REASON FOR REFERRAL: Acute kidney injury. REFERRING PHYSICIAN: Laverne Horn MD HISTORY OF PRESENT ILLNESS: This patient is a 79-year-old [place]ag[place] gentleman with past medical history significant for hypertension, hyperlipidemia, type 2 diabetes, BPH, GERD, anxiety, history of Cocci positive on 05/03/2024, who presented to the emergency room yesterday with right foot infection. While in the emergency room, he was found with soft blood pressures in the 100s/60s. The patient also has elevated white cell count of 28,000. As per chart, the patient was a little bit combative while in the emergency room. The patient was eventually admitted to the floor. Further evaluation revealed that his creatinine was elevated at 2.5. His baseline serum creatinine is around 0.6 mg/dL, which was done on 08/01/2024. The patient was started on IV fluids and cefepime 1 g IV every 12 hours. He was also started on doxycycline 100 mg IV b.i.d. as well. The patient continues to be confused and now on two wrist restraints. He also had a chest x-ray done, which revealed left lung pneumonia and a right foot x-ray, which did not show any cortical bone destruction, but only severe osteopenia. He is also a little bit confused. PAST MEDICAL HISTORY: Cocci positive, GERD, anxiety, hyperlipidemia, type 2 diabetes, currently insulin-dependent, BPH, hypertension, CAD status post stent placement on February 2024, asthma, history of urinary retention and GOMEZ currently with chronic indwelling catheter. PAST SURGICAL HISTORY: Colonoscopy, stent placement, EGD. ALLERGIES: NO KNOWN DRUG ALLERGIES CURRENT MEDICATIONS: 1. Acetaminophen. 2. Sodium chloride bolus 1 liter 3. Cefepime 1 gram IV every 12 hours. 4. Doxycycline 100 mg IV b.i.d. 5. Lispro sliding scale. 6. Lorazepam 1 mg IV p.r.n. 7. Protonix 40 mg IV daily. 8. Normal saline at 75 mL per hour. PHYSICAL EXAMINATION: GENERAL: He is awake, confused with two wrist restraints. VITAL SIGNS: Blood pressure of 98/65, temperature 97.4 HEENT: Anicteric sclerae. Normocephalic. NECK: Supple. No JVD. CHEST AND LUNGS: Symmetrical expansion. Clear breath sounds. HEART: Without murmur. ABDOMEN: Soft and nontender. EXTREMITIES: No edema. LABORATORY DATA: Sodium 138, potassium 4.4, chloride 106, CO2 of 16.8, BUN 49, creatinine 2.2, glucose 130, calcium 8.9, albumin 2.7. Hemoglobin 8.9, WBC 28,200 . ASSESSMENT: 1. Acute kidney injury most likely secondary to hypoperfusion while taking diclofenac, which is a nonsteroidal anti-inflammatory drug. 2. Dementia. 3. Possible sepsis secondary to urinary tract infection, which is now growing gram negative rods. 4. Anemia. 5. History of type 2 diabetes. 6. History of coronary artery disease with stent placement. PLAN: The patient's kidney function has started to improve. We should discontinue his diclofenac, benazepril, baclofen for now until kidneys start to improve as well as the blood pressures improve. I agree with continuing IV fluids. Continue monitoring urine output, kidney function, electrolytes on a daily basis. Avoid all kinds of NSAIDs. Thank you for allowing me to participate in medical care of your patient. DT: 12:44:17 TT: 14:20:00 Ref: [id number] - TID: [id number] MTDD
--- NOTE | 2024-09-03 15:24 | PD.RESPRO ---
Documentation for date of: 09/03/24 Subjective Subjective Interval history: 09/03: Overnight team reported patient was agitated and was pulling at lines therefore soft restraints were placed. Patient is seen and examined in bedside this morning. Patient is confused, agitated and uncooperative this morning. Patient took a sip of milk and spit it out the nurse at bedside. Patient asked everyone to get out of the room and he did not want to eat breakfast. Patient is on soft restraints. Exam Vital Signs Temp Pulse Resp BP Pulse Ox O2 Del Method O2 Flow Rate 97.7 F 89 17 119/66 96 Nasal Cannula 4 09/03/24 12:00 09/03/24 12:00 09/03/24 12:00 09/03/24 12:00 09/03/24 12:00 09/03/24 12:00 09/03/24 12:00 Narrative Exam Physical exam unobtainable as patient is agitated and confused Objective Labs 09/04/24 05:15 09/04/24 05:15 Labs: Laboratory Results - last 24 hr 09/02/24 09/03/24 18:57 04:41 WBC 28.2 H D RBC 3.35 L Hgb 8.9 L Hct 27.7 L MCV 83 MCH 26.6 MCHC 32.1 RDW Std Deviation 54.9 H Plt Count 275 D Neut % (Auto) 90 H Lymph % (Auto) 3 L [place] % (Auto) 5 Eos % (Auto) 0 Baso % (Auto) 0 Neut # (Auto) 25.5 H Lymph # (Auto) 0.7 L [place] # (Auto) 1.4 H Eos # (Auto) 0.1 Baso # (Auto) 0.1 Immature Gran # (Auto) 0.41 H Absolute Nucleated RBC 0.00 Immature Gran % 2 H Nucleated RBC % 0 Sodium 133 L Potassium 4.4 Chloride 106 Carbon Dioxide 16.8 L Anion Gap 10 BUN 49 H Creatinine 2.2 H Estim Creat Clear Calc 29.5 L eGFR 30 L BUN/Creatinine Ratio 22 H Glucose 130 H Calculated Osmolality 281 Calcium 7.9 L Corrected Calcium 8.9 Total Bilirubin 0.4 AST 11 ALT < 7 L Alkaline Phosphatase 85 D Total Protein 5.5 L Albumin 2.7 L D Globulin 2.8 Albumin/Globulin Ratio 1.0 L Ur Collection Type Catheter Urine Color Yellow Urine Clarity Turbid A Urine pH 6.0 Ur Specific [place] 1.010 Urine Protein 1+ A Urine Glucose (UA) Trace Urine Ketones Negative Urine Blood 2+ A Urine Nitrite Negative Urine Bilirubin Negative Urine Urobilinogen (Auto) Negative Ur Leukocyte Esterase Positive Urine RBC 6 H Urine WBC 1961 H Ur Squamous Epith Cells 0 Urine Bacteria 4+ A Urine Yeast (Budding) Present A Quality Measures Quality Measures none Advance care planning discussed with:: child Assessment & Plan Assessment Current Active Medications: Generic Name Dose Route Start Last Admin Trade Name Angela PRN Reason Stop Dose Admin Acetaminophen 650 mg 09/02/24 16:56 Acetaminophen 325 Mg Tablet PO 10/02/24 16:55 Q6H PRN Fever >101.5 and mild pain 1-3 Dextrose 25 ml 09/02/24 17:31 Dextrose 50%-Water Inj 50 Ml Syringe IV 10/02/24 17:30 Q15MIN PRN BG 50-70 responsive npo pt Dextrose 50 ml 09/02/24 17:31 Dextrose 50%-Water Inj 50 Ml Syringe IV 10/02/24 17:30 Q15MIN PRN BG <50 OR BG <70 & pt unresponsive Glucagon 1 mg 09/02/24 17:31 Glucagon Inj 1 Mg Vial IM Q15MIN PRN BG <70, and no IV access Sodium Chloride 1,000 mls @ 75 mls/hr 09/02/24 16:53 09/03/24 08:45 Ns IV 10/02/24 16:52 75 mls/hr .[id number] ZAK Administration Doxycycline Hyclate 100 mg/ 100 mls @ 100 mls/hr 09/02/24 21:00 09/03/24 08:41 Sodium Chloride IV 09/09/24 20:59 100 mls/hr BID ZAK Administration Cefepime HCl 1 gm/ Sodium 50 mls @ 100 mls/hr 09/02/24 16:55 09/03/24 08:41 Chloride IV 09/09/24 16:54 100 mls/hr Q12HR ZAK Administration Insulin Human Regular 0 unit 09/02/24 21:00 09/03/24 11:56 Insulin Hum Regular 1 Unit/0.01 Ml (Per Unit) SC 10/02/24 20:59 1 unit ACHS ZAK Administration Protocol Lorazepam 1 mg 09/03/24 03:08 09/03/24 03:30 Lorazepam 2 Mg/Ml Vial IVP 09/08/24 03:07 1 mg X1 PRN Administration AGITATION Ondansetron HCl 4 mg 09/02/24 16:56 Ondansetron Inj 2 Mg/Ml Inj 2 Ml IV 10/02/24 16:55 Q6H PRN NAUSEA OR VOMITING Protocol Oxycodone/Acetaminophen 1 tab 09/02/24 16:56 Oxycodone/Apap 5/325 Tablet PO 09/07/24 16:55 Q6H PRN PAIN SCALE 4-6 (Moderate Pantoprazole Sodium 40 mg 09/02/24 17:00 09/03/24 08:42 Pantoprazole Inj 40 Mg Vial IVP 10/02/24 16:59 40 mg QDAY ZAK Administration Plan Mr. Navarro is a 79-year-old male with past medical history significant for hypertension, hyperlipidemia, type 2 diabetes, BPH, peripheral neuropathy, GERD, anxiety, history of cocci positive on May 03, 2024 presented to the ED via EMS from SNF complaining of worsening wound on right foot and leukocytosis at the nursing facility. #Sepsis #Acute Hypoxic respiratory failure # L. lower lobe Pneumonia -CAP # Leukocytosis #Acute Metabolic Encepholopathy -Patient denies any cough, fever shortness of breath, -Chest x-ray findings include significant left lung pneumonia -WBC 28.2 -In the ED patient received 1 L bolus IV fluids -In the ED patient required oxygen via oxy mask -Currently saturating at 96% on 4 L of oxygen via nasal cannula Plan: -IV fluids maintenance ordered -Doxycycline 100mg IV started 09/02/2024 -Cefepime 1g IV started 09/02/2024 # Pressure ulcer # Nonhealing wound on R. foot # In the setting of peripheral artery disease # Right foot gangrene # Diabetic foot ulcer-likely -Patient has a nonhealing pressure ulcer on the right lower extremity on the heel of right foot - Foot x-ray-no hans cortical bone destruction, Severe osteopenia Chronic deformity at the first metatarsophalangeal joint Soft tissue vascular calcification Soft tissue defect medial been no hans cortical bone destruction Plan: -ED consulted Dr. Maurer for recommendations -Per Dr. Maurer's -No surgical intervention needed -Wound care ordered -Blood culture urine cultures ordered # UTI #Pyuria # Urinary retention # BPH #chronic Blum -Patient has a history of recurrent UTIs due to chronic Blum -Urinalysis findings positive for leukocyte esterase, urine blood 2+, urine RBC 6, urine WBC 1961, urine bacteria 4+, urine yeast present -Patient is unable to confirm symptoms as he has a chronic Blum and patient is altered Plan --Dual coverage of antibiotics started -Cefepime 1 g every 12 hours 09/02/2024- -Doxycycline 100 Mg twice daily 09/02/2024- -Requested nurse to change Blum cath now 09/02 -Urine cultures pending #Acute GOMEZ #History of CKD -On admission BUN 60 Cr 2.5 GFR 26, BUN/Cr 24 -Likely prerenal in the setting of dehydration and sepsis versus postrenal in the setting of BPH and history of urinary retention Plan -1 L bolus normal saline given in the ED -IV fluids maintenance ordered -Nephrology consulted -Per Dr. Cabrera recommendation-discontinue diclofenac, Benazepril, baclofen -Continue IV fluids -Continue monitoring urine output and kidney function electrolytes -Avoid nephrotoxic drugs and renally dose medications # Primary hypertension -On admission, blood pressure was 114/61 -Patient continues to have blood pressure within normal range Plan -Hold blood pressure meds #Diabetes Mellitus Type II, Insulin Dependent -On admission glucose of 157 and previous A1c 8.3 (06/08/2024). Plan: -Sliding Scale ordered #GERD -Pantoprazole 40 daily #CAD s/p stents (02/2024) -On previous admission patient was started on Aspirin and Plavix. Not listed on SNF medication list. Disposition: telemetry DVT Prophylaxis: SCD QSHIFT GI Prophylaxis: Pantoprozol-40 IV Diet: Dysphagia 1 Code status: DNR/DNI Assessment and plan discussed with attending physician Dr. Mila Horn (PGY-1)- Internal medicine resident Attending Provider Attestation/Addendum 79-year-old male patient with multiple medical problems including coronary artery disease, peripheral vascular disease right foot ulcers, recurrent UTI. The patient has BPH with chronic Blum catheter with CKD. The patient was admitted for acute hypoxic respiratory failure, sepsis secondary to pneumonia and UTI and right foot infection. Patient is currently receiving antibiotic treatment. Continue to monitor kidney functions. Patient is at risk for further worsening of renal function that could happen if he proceed with angiographic/arteriographic studies for right foot ulcers. Will have discussion with family members regarding goals of care today. Discussed with housestaff.
--- NOTE | 2024-09-03 16:15 | PC.SS ---
DATA WAREHOUSE DEVELOPER received return call from [facility], no male hospice beds. DATA WAREHOUSE DEVELOPER notified patient's son Andres. Confirmed plan to return patient to [facility] with hospice. No preferred hospice provider identified.
--- NOTE | 2024-09-03 16:16 | PC.SS ---
VULCANIZER OPERATOR spoke to [facility] staff, Nga; who confirmed that patient can return to SNF with hospice services. [facility] staff informed VULCANIZER OPERATOR that facility is contracted with [facility].
--- NOTE | 2024-09-03 16:17 | PC.SS ---
Hospice referral submitted on [facility]. Awaiting response.
--- NOTE | 2024-09-03 16:22 | PC.SS ---
Granddaughter, Bonnie [phone].
--- NOTE | 2024-09-03 16:46 | EVENTNT_ITS ---
Documentation for date of: 09/03/24 Event Note Event Note: The goals of care discussion was initiated with the patient's family including patient's son Andres (he is the decision maker for the patient), Don's and patient's granddaughter, social work job titles Dr. Mila Dumont and Dr. Benjamin. We reviewed the patient's hospital course, ongoing management and potential risks and benefits of any aggressive treatments and or interventions. All treatment options including full treatment, palliative, hospice have been discussed at length. The family was given time to ask questions; all of their questions were answered to satisfaction with understanding of the patient's prognosis and the family have made the decision to transition to hospice care with direct focus on comfort, symptom control, hospice service. Patient's family showed good understanding of what hospice care is and referral to hospice is made. Patient's family preference for care [facility]. Assessment and plan discussed with attending physician Dr. Mila Horn (PGY-1)- Internal medicine resident
[2024-09-03] MEDS: QUEtiapine FUMARATE 25 MG TABLET PO (17:39)
[2024-09-04] VITALS (7 sets, daily range): BP systolic 102–148; BP diastolic 57–75; PULSE 64–83; RESP 16–20; TEMP 36.3–37.1; O2SAT 95–99
[2024-09-04 06:00] LABS: Basophils % (Auto) 0 % (0-2.5); Eosinophils # (Auto) 0.1 Thou/mm3 (0.0-0.5); Eosinophils % (Auto) 1 % (0-10); Hematocrit 28.3 % (41.0-53.0); Immature Granulocytes % (Auto) 2 % (0-0); Lymphocytes # (Auto) 0.9 Thou/mm3 (1.0-4.8); Lymphocytes % (Auto) 5 % (10-50); Mean Corpuscular HGB Conc 31.8 g/dl (31.0-37.0); Mean Corpuscular Volume 82 fL (80-100); Monocytes % (Auto) 6 % (0-12); Neutrophils # (Auto) 15.2 Thou/mm3 (1.8-7.7); Neutrophils % (Auto) 86 % (37-80); Nucleated Red Blood Cell % 0 /100 WBC (0); Platelet Count 336 Thou/mm3 (140-440); RDW Standard Deviation 54.8 fL (35.1-43.9); Red Blood Count 3.46 Miln/mm3 (4.50-5.90); White Blood Count 17.6 Thou/mm3 (3.8-10.6)
[2024-09-04 06:42] LABS: Alanine Aminotransferase < 7 U/L (10-49); Albumin/Globulin Ratio 1.1 (1.2-2.2); Alkaline Phosphatase 106 U/L (46-116); Anion Gap 8 (7-16); Aspartate Amino Transferase < 8 U/L (0-34); BUN/Creatinine Ratio 28 Ratio (12-20); Bilirubin,Total 0.3 mg/dL (0.3-1.2); Blood Urea Nitrogen 48 mg/dL (9-23); Calcium 8.2 mg/dL (8.3-10.6); Carbon Dioxide 19.4 mMol/L (20.0-31.0); Chloride 110 mMol/L (98-107); Creatinine (Component) 1.7 mg/dL (0.6-1.3); Globulin 2.8 gm/dL (2.3-3.5); Glucose 205 mg/dL (74-106); Osmolality,Calculated 292 (275-295); Potassium 4.2 mMol/L (3.4-5.1); Sodium 137 mMol/L (136-145); Total Protein 5.8 gm/dL (5.7-8.2); eGFR 41 See Note
[2024-09-04] MEDS: INSULIN HUM REGULAR 1 UNIT/0.01 ML (PER UNIT) SC ×3 (07:49→16:23)
[2024-09-04] MEDS: PANTOPRAZOLE INJ 40 MG VIAL IVP (08:16)
[2024-09-04] MEDS: CEFEPIME INJ 1 GM in SODIUM CHLORIDE 0.9% (P) 50 ML IV (08:16)
[2024-09-04] MEDS: oxyCODONE/APAP 5/325 TABLET 1 TAB PO (08:19)
[2024-09-04] MEDS: DOXYCYCLINE INJ 100 MG in SODIUM CHLORIDE 0.9% (P) 100 ML IV (09:20)
--- NOTE | 2024-09-04 10:15 | ESPR_ITS ---
Documentation for date of: 09/04/24 Subjective Subjective Interval history: 09/03: Overnight team reported patient was agitated and was pulling at lines therefore soft restraints were placed. Patient is seen and examined in bedside this morning. Patient is confused, agitated and uncooperative this morning. Patient took a sip of milk and spit it out the nurse at bedside. Patient asked everyone to get out of the room and he did not want to eat breakfast. Patient is on soft restraints. 09/04: overnight team reported patient was agitated therefore Ativan was given. Patient seen and examined at bedside this morning, patient was resting sleeping comfortably. Patient requested to not be woken up from sleep for anything. Patient has no other complaints Exam Vital Signs Temp Pulse Resp BP Pulse Ox O2 Del Method O2 Flow Rate 98.8 F 74 17 135/65 H 96 Nasal Cannula 2 09/04/24 08:00 09/04/24 08:00 09/04/24 08:00 09/04/24 08:00 09/04/24 08:00 09/04/24 08:00 09/04/24 08:00 Narrative Exam Physical exam unobtainable as patient is agitated and confused Objective Labs 09/04/24 05:15 09/04/24 05:15 Labs: Laboratory Results - last 24 hr 09/04/24 05:15 WBC 17.6 H D RBC 3.46 L Hgb 9.0 L Hct 28.3 L MCV 82 MCH 26.0 MCHC 31.8 RDW Std Deviation 54.8 H Plt Count 336 D Neut % (Auto) 86 H Lymph % (Auto) 5 L [place] % (Auto) 6 Eos % (Auto) 1 Baso % (Auto) 0 Neut # (Auto) 15.2 H Lymph # (Auto) 0.9 L [place] # (Auto) 1.0 H Eos # (Auto) 0.1 Baso # (Auto) 0.0 Immature Gran # (Auto) 0.40 H Absolute Nucleated RBC 0.00 Immature Gran % 2 H Nucleated RBC % 0 Sodium 137 Potassium 4.2 Chloride 110 H Carbon Dioxide 19.4 L Anion Gap 8 BUN 48 H Creatinine 1.7 H D Estim Creat Clear Calc 37.0 L eGFR 41 L BUN/Creatinine Ratio 28 H Glucose 205 H D Calculated Osmolality 292 Calcium 8.2 L Corrected Calcium 9.0 Total Bilirubin 0.3 AST < 8 ALT < 7 L Alkaline Phosphatase 106 D Total Protein 5.8 Albumin 3.0 L Globulin 2.8 Albumin/Globulin Ratio 1.1 L Quality Measures Quality Measures none Advance care planning discussed with:: child Assessment & Plan Assessment Current Active Medications: Generic Name Dose Route Start Last Admin Trade Name Freq PRN Reason Stop Dose Admin Acetaminophen 650 mg 09/02/24 16:56 Acetaminophen 325 Mg Tablet PO 10/02/24 16:55 Q6H PRN Fever >101.5 and mild pain 1-3 Dextrose 25 ml 09/02/24 17:31 Dextrose 50%-Water Inj 50 Ml Syringe IV 10/02/24 17:30 Q15MIN PRN BG 50-70 responsive npo pt Dextrose 50 ml 09/02/24 17:31 Dextrose 50%-Water Inj 50 Ml Syringe IV 10/02/24 17:30 Q15MIN PRN BG <50 OR BG <70 & pt unresponsive Glucagon 1 mg 09/02/24 17:31 Glucagon Inj 1 Mg Vial IM Q15MIN PRN BG <70, and no IV access Sodium Chloride 1,000 mls @ 75 mls/hr 09/02/24 16:53 09/03/24 23:31 Ns IV 10/02/24 16:52 75 mls/hr .[id number] ZAK Administration Piperacillin/Tazobactam/Dextrose 50 mls @ 12.5 mls/hr 09/04/24 14:00 Zosyn IV 09/11/24 13:59 Q8HR ZAK Piperacillin/Tazobactam/Dextrose 50 mls @ 100 mls/hr 09/04/24 10:15 Zosyn IV 09/04/24 10:44 X1 ONE Insulin Human Regular 0 unit 09/02/24 21:00 09/04/24 07:49 Insulin Hum Regular 1 Unit/0.01 Ml (Per Unit) SC 10/02/24 20:59 2 unit ACHS ZAK Administration Protocol Lorazepam 1 mg 09/03/24 03:08 09/03/24 03:30 Lorazepam 2 Mg/Ml Vial IVP 09/08/24 03:07 1 mg X1 PRN Administration AGITATION Ondansetron HCl 4 mg 09/02/24 16:56 Ondansetron Inj 2 Mg/Ml Inj 2 Ml IV 10/02/24 16:55 Q6H PRN NAUSEA OR VOMITING Protocol Oxycodone/Acetaminophen 1 tab 09/02/24 16:56 09/04/24 08:19 Oxycodone/Apap 5/325 Tablet PO 09/07/24 16:55 1 tab Q6H PRN Administration PAIN SCALE 4-6 (Moderate Pantoprazole Sodium 40 mg 09/02/24 17:00 09/04/24 08:16 Pantoprazole Inj 40 Mg Vial IVP 10/02/24 16:59 40 mg QDAY ZAK Administration Pharmacy Consult 1 each 09/04/24 10:15 Vancomycin Pharmacy To Dose 1 Each Each IV 10/04/24 10:14 QDAY PRN CONSULT Plan Mr. Navarro is a 79-year-old male with past medical history significant for hypertension, hyperlipidemia, type 2 diabetes, BPH, peripheral neuropathy, GERD, anxiety, history of cocci positive on May 03, 2024 presented to the ED via EMS from SNF complaining of worsening wound on right foot and leukocytosis at the nursing facility. #Sepsis -resolved #Acute Hypoxic respiratory failure # L. lower lobe Pneumonia -CAP # Leukocytosis #Acute Metabolic Encepholopathy -Patient denies any cough, fever shortness of breath, -Chest x-ray findings include significant left lung pneumonia -WBC 28.2 -In the ED patient received 1 L bolus IV fluids -In the ED patient required oxygen via oxy mask -Currently saturating at 96% on 4 L of oxygen via nasal cannula Plan: -IV fluids maintenance ordered -Antibiotics changed from doxycycline and cefipime to -Vancomycin and Zosyn started 09/04/24 -MRSA posiitive # Pressure ulcer # Nonhealing wound on R. foot # In the setting of peripheral artery disease # Right foot gangrene # Diabetic foot ulcer-likely -Patient has a nonhealing pressure ulcer on the right lower extremity on the heel of right foot - Foot x-ray-no hans cortical bone destruction, Severe osteopenia Chronic deformity at the first metatarsophalangeal joint Soft tissue vascular calcification Soft tissue defect medial been no hans cortical bone destruction Plan: -ED consulted Dr. Maurer for recommendations -Per Dr. Maurer's -No surgical intervention needed -Wound care ordered -Blood culture - no growth # UTI #Pyuria # Urinary retention # BPH #chronic Blum -Patient has a history of recurrent UTIs due to chronic Blum -Urinalysis findings positive for leukocyte esterase, urine blood 2+, urine RBC 6, urine WBC 1961, urine bacteria 4+, urine yeast present -Patient is unable to confirm symptoms as he has a chronic Blum and patient is altered Plan --Dual coverage of pneumonia and UTI antibiotics started -Vancomycin and Zosyn started 09/04/24 -Requested nurse to change Blum cath now 09/02 --Urine culture - positive for Citrobacter Freundii #Acute GOMEZ #History of CKD -On admission BUN 60 Cr 1.7 GFR 41, BUN/Cr 28 -Likely prerenal in the setting of dehydration and sepsis versus postrenal in the setting of BPH and history of urinary retention Plan -1 L bolus normal saline given in the ED -IV fluids maintenance ordered -Nephrology consulted -Per Dr. Cabrera recommendation-discontinue diclofenac, Benazepril, baclofen -Continue IV fluids -Continue monitoring urine output and kidney function electrolytes -Avoid nephrotoxic drugs and renally dose medications # Primary hypertension -On admission, blood pressure was 114/61 -Patient continues to have blood pressure within normal range. This morning BP 135/65 Plan -Hold blood pressure meds #Diabetes Mellitus Type II, Insulin Dependent -On admission glucose of 157 and previous A1c 8.3 (06/08/2024). Plan: -Sliding Scale ordered #GERD -Pantoprazole 40 daily #CAD s/p stents (02/2024) -On previous admission patient was started on Aspirin and Plavix. Not listed on SNF medication list. Disposition: Telemetry DVT Prophylaxis: SCD QSHIFT GI Prophylaxis: Pantoprozol-40 IV Diet: Dysphagia 1 Code status: DNR/DNI Assessment and plan discussed with attending physician Dr. Mila Horn (PGY-1)- Internal medicine resident Attending Provider Attestation/Addendum Patient was seen and examined he appears comfortable. He is not agitated. Patient will discharge to [facility] SNF on hospice. Discussed with housestaff.
[2024-09-04] MEDS: PIPER/TAZO 3.375 GM 50 ML IV ×2 (10:24→13:35)
[2024-09-04] MEDS: SODIUM CHLORIDE 0.9% 1000 ML 1,000 ML 75 ML IV (11:29)
--- NOTE | 2024-09-04 14:26 | PC.SS ---
Addendum entered by Lily June [employer] 09/04/24 16:18: Tentative ETA 6pm. Updated bed side nurseNga at [facility] and [facility]. Nursing station number provided to transport company. Addendum entered by LEONARDA Beverly 09/04/24 15:17: Transport with [employer], reference number: [id number]. Request for [facility]. Pending ETA. Addendum entered by Lily June [employer] 09/04/24 15:08: Sent updated notes to [facility] via [employer], spoke with Nga at [facility] and she is aware patient on soft restraints and is agreeable to accept the patient. Addendum entered by Lily June [employer] 09/04/24 15:04: Was informed by bed side nurse Raya, that the patient is downgrading to medsurg. Pending room number. Addendum entered by Lily June [employer] 09/04/24 14:52: Confirmed with Dr. Benjamin, plan is to discharge to patient today to [facility] with hospice services. Updated Georgette at [facility]. Addendum entered by Lily June [employer] 09/04/24 14:27: Spoke with patient's granddaughter, Bonnie [phone]. She is agreeable with patient's discharge to [facility] with [facility]. Original Note: SS update: spoke with Nga at [facility] she is agreeable with accepting the patient today with [facility].
--- NOTE | 2024-09-04 16:18 | ESDS_ITS ---
Planned Discharge Date 09/04/24 DS: Providers Provider Date of admission: 09/02/24 15:39 Primary care physician: Jeramy Gomez MD Admitting Provider: Fannie Galdamez DO Attending Provider on Admission: Luke Zaragoza MD Consults: 09/02/24 15:33 Consult to General Surgery Stat Comment: Consulting Provider: Ale Maurer 09/02/24 16:03 Referral Nutritional Services Routine Comment: Instructions: wounds Referral Wound Care Routine Comment: Instructions: Wounds 09/02/24 16:55 Consult to Nephrology Routine Comment: Consulting Provider: Evelyne Land 09/03/24 16:04 Referral Hospice Stat Comment: Attending Provider on DC: Ivan Horn MD Discharging Provider: Ivan Horn MD DS: Diagnosis Problem List Completed Was Problem List Reviewed/Reconciled?: Yes Hospital Course Hospital Course Hospital course: Mr. Navarro is a 79-year-old male with past medical history significant for hypertension, hyperlipidemia, type 2 diabetes, BPH, peripheral neuropathy, GERD, anxiety and history of cocci positive presents to the [facility] ED on 09/02/2024 from SNF complaining of worsening wound on right foot with leukocytosis. Patient also has chronic Blum which causes him to have recurrent UTIs. On admission patient was altered mental status and very agitated and often aggressive towards staff members. Patient was also found to have UTI in the setting of chronic Blum as well as acute renal failure in the setting of chronic kidney disease. chest x-ray findings include significant left lung pneumonia and foot x-ray no hans cortical bone destruction and showed severe osteopenia with vascular calcification. Surgery was initially consulted as an option however patient's son and on request and goals of care discussion with family members. The goals of care discussion was initiated with the patient's family including patient's son Andres (he is the decision maker for the patient), Don's and patient's granddaughter, social media analyst Dr. Mila Dumont and Dr. Benjamin. We reviewed the patient's hospital course, ongoing management and potential risks and benefits of any aggressive treatments and or interventions. All treatment options including full treatment, palliative, hospice have been discussed at length. The family was given time to ask questions; all of their questions were answered to satisfaction with understanding of the patient's prognosis and the family have made the decision to transition to hospice care with direct focus on comfort, symptom control, hospice service. Patient's family showed good understanding of what hospice care is and referral to hospice is made. Patient is discharged to SNF with hospice. Continue hospice care. Continue home medications recommended by hospice team. Patient can eat any diet as tolerated including solid food. Follow up with PCP within 2 weeks. #Acute renal failure #History of CKD # Urinary tract infection #chronic Blum # Leukocytosis secondary to #CAP Pneumonia #Acute Metabolic Encepholopathy # Pressure ulcer # Nonhealing wound on R. 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 Mila Horn (PGY-1)- Internal medicine resident Time Spent with Patient Time attestation: Total time spent providing and/or coordinating discharge services: Exam Vital Signs Temp Pulse Resp BP Pulse Ox O2 Del Method O2 Flow Rate 98.5 F 67 17 138/60 H 99 Nasal Cannula 2 09/04/24 12:00 09/04/24 12:00 09/04/24 12:00 09/04/24 12:00 09/04/24 12:00 09/04/24 12:00 09/04/24 12:00 Discharge Plan Plan Patient Disposition: Xfer Other Disposition Comment: SNF w/ hospice Patient condition on transfer: Stable Care Plan Goals: Continue hospice care. Continue home medications recommended by hospice team. Patient can eat any diet as tolerated including solid food. Follow up with PCP within 2 weeks. Prescriptions/Referrals Prescriptions/Med Rec: Continued ondansetron HCl 4 mg Tablet 4 mg PO Q6H PRN (Reason: Nausea) hydroxyzine HCl 25 mg Tablet 25 mg Q12HR PRN (Reason: Anxiety) citalopram 20 mg tablet 20 mg PO 1XD bisacodyl [Dulcolax (bisacodyl)] 10 mg Suppository 10 mg IL QDAY PRN (Reason: Constipation) Rx Instructions: To be administered the following shift if MOM is ineffective baclofen 10 mg Tablet 10 mg PO BID pantoprazole 40 mg Tablet,Delayed Release (Dr/Ec) 40 mg PO QDAY docusate sodium [Stool Softener] 100 mg Capsule 100 mg PO QDAY melatonin 5 mg Tablet 5 mg PO HS Discontinued insulin glargine [Lantus Solostar U-100 Insulin] 100 unit/mL (3 mL) Insulin Pen 15 unit SUBCUT QPM Qty: 15 0RF cranberry extract 425 mg Capsule 425 mg PO BID metronidazole [Flagyl] 500 mg Tablet 500 mg PO 1XD Rx Instructions: Apply to Right heel topically every shift for wound healing for 30 days. Crush tablet and apply to dakins soaked gauze, place on diabetic wound to right heel, cover with dry dressing Fleet Enema 19-7 gram/118 mL Enema 118 ml IL Q72H PRN (Reason: Constipation) Rx Instructions: To be administered the following shift if ducolax suppository is innefective, notify MD if no result glucagon 1 mg/0.2 mL Auto-Injector 1 mg PRN PRN (Reason: blood sugar <70) Rx Instructions: IM dose magnesium hydroxide [Milk of Magnesia] 400 mg/5 mL Suspension 30 ml PO Q72H PRN (Reason: Constipation) Rx Instructions: as needed for constipation NO BM for 3 days Pro-Stat Sugar Free 15-100 gram-kcal/30 mL Liquid 1 ea PO BID finasteride 5 mg tablet 5 mg PO QDAY tramadol 50 mg Tablet 50 mg PO Q12HR PRN (Reason: moderate to severe pain 4-10) ascorbic acid (vitamin C) 500 mg Tablet 500 mg PO BID tamsulosin [Flomax] 0.4 mg Capsule 0.4 mg PO QDAY gabapentin 800 mg Tablet 800 mg PO TID Hold Instructions: re-evaluate dose with PCP diclofenac sodium 75 mg Tablet,Delayed Release (Dr/Ec) 75 mg PO BID Hold Instructions: re-evaluate with pcp furosemide 20 mg Tablet 20 mg PO QAM Hold Instructions: re-evaluate with PCP benazepril 40 mg Tablet 40 mg PO QDAY Rx Instructions: hold if sbp<100,or dbp<60 Trulicity 0.75 mg/0.5 mL Pen Injector 0.75 mg SUBCUT QWEEK Rx Instructions: EVERY SUNDAY acetaminophen [Tylenol] 325 mg Tablet 650 mg PO [id number] PRN (Reason: mild pain) insulin aspart U-100 100 unit/mL Solution See Rx Instructions .ROUTE .COMPLEX Rx Instructions: inject as per sliding scale:if 0-150=0;151-200=2; 201-250=4; 251-300=6;301- 350=8; 351-400=10; 401+notify MD immediately, subcutaneous before meals and at bedstime for DM2. Notify MD immediaately if BS <70mg/dl or >400 mg/dl. multivitamin with minerals Capsule 1 cap PO QDAY Referrals: Jeramy Gomez MD [Primary Care Provider] - Patient/Caregiver Discharge Instructions Other Discharge Activity Instructions:: Right medial heel deep tissue injury. Right lateral heel unstageable: cleanse with wound cleanser, pat dry, saturate calcium algainte with betadine and cover both wounds. Secure with abd pad and kerlix roll daily. Negative heel pressure bilaterally Unstageable to sacrum: cleanse with wound cleanser, pat dry, cover with calcium algiante. Skin prep to wound edges and secure with allyven dressing daily Side to side repostioning except for meals Education Materials: Hospice Dyspnea Care Print Language: Nepali Activity Restrictions/Additional Instructions: diet texture as tolerated Stand Alone Forms: Jeniffer Award Info., Patient Portal Info Letter Discharge Order Discharge Orders: Discharge (Routine); Ordered 09/04/24 Ordered By: Nicolas Benjamin Quality Discharge Quality Measures none MD Attestestation MD Attestation I discussed with and supervised the resident physician who took care of this patient. I agree with the assessment and discharge plan as above. Follow-up with hospice.
--- NOTE | 2024-09-04 17:01 | PC.NURSE ---
Report given to Marilu at [facility].
== END 2024-09-04 18:35 | disposition other institution (70) | DRG 871 ==
LOC: SERX 15:35 → SERHOLD 15:52 → S2NX 23:27
PROVIDERS: Registered Nurse General Practice; Admitting Provider Internal Medicine; Emergency Provider Emergency Medicine; PCP Hospitalist; Visit Provider Internal Medicine
DX: A41.9 Sepsis, unspecified organism (principal); J18.9 Pneumonia, unspecified organism; J96.01 Acute respiratory failure with hypoxia; J44.0 Chronic obstructive pulmonary disease with (acute) lower respiratory infection; N17.9 Acute kidney failure, unspecified; N39.0 Urinary tract infection, site not specified; K21.9 Gastro-esophageal reflux disease without esophagitis; F17.210 Nicotine dependence, cigarettes, uncomplicated; Z66 Do not resuscitate; N40.1 Benign prostatic hyperplasia with lower urinary tract symptoms; E78.5 Hyperlipidemia, unspecified; F41.9 Anxiety disorder, unspecified; E11.42 Type 2 diabetes mellitus with diabetic polyneuropathy; E11.621 Type 2 diabetes mellitus with foot ulcer; L89.616 Pressure-induced deep tissue damage of right heel; N18.9 Chronic kidney disease, unspecified; E11.22 Type 2 diabetes mellitus with diabetic chronic kidney disease; I12.9 Hypertensive chronic kidney disease with stage 1 through stage 4 chronic kidney disease, or unspecified chronic kidney disease; I25.10 Atherosclerotic heart disease of native coronary artery without angina pectoris; Z95.5 Presence of coronary angioplasty implant and graft; Z79.4 Long term (current) use of insulin; Z78.1 Physical restraint status
CPT/HCPCS: 36415; 36600; 71045; 73630; 80053; 81001; 82803; 85025; 87040; 87077; 87081; 87086; 87186; 87811; 96361; 96365; 96374; J0692; J1815; J2060; J2470; J2543; J3490; J7030; J7050; A9270